=== PATIENT | female | born 1940 | race Caucasian/White ===

== ENCOUNTER → 2017-12-31 13:45 | Outpatient (CLI) | payer MEDICARE, SELFPAY ==
--- NOTE | 2017-12-31 13:45 | LES_PTH ---
PATIENT: CHAD BARRERA LOC: [facility] U#:[id number] AGE/SX: 84/F ROOM: RE12/31/[address]: Dr. Nash Herrera MD : 1940 BED: DIS: SPEC #: [id number] RECD: 12/31/17 17:04 STATUS: PADMINI SEVERO #: [id number] DIANNE: 12/31/17 13:[address]: Nash Herrera DEPT: SURGICAL PATHOLOGY RECD BY: Parker Lee ENTERED: 01/01/18 11:28 SP TYPE: Lesion OTHR DR: Dr. Tobias Herrera III, MD Tissues: Left arm Procedures: Surgery Specimen Level IV HEADER OPERATION: Excision left arm mass PRE-OP DIAGNOSIS: Left arm mass TISSUE SUBMITTED: Left arm tissue MICROSCOPIC DIAGNOSIS Left arm tissue: Mature adipose tissue, consistent with lipoma. See comment. JAKE:barb 01/02/18 COMMENT Skeletal muscle tissue is also noted. MICROSCOPIC DESCRIPTION Slides are reviewed. GROSS DESCRIPTION Received in fixative is one container labeled with the patient's name and designated left arm. The specimen consists of multiple pieces of yellow adipose tissue measuring 3.5 x 3.5 x 1 cm. Sections reveal yellow adipose cut surfaces without area of hemorrhage, necrosis or cystic degeneration. Tower Director sections are submitted in two cassettes. / SJ:rg 01/01/18 TC:1 CPT: 28392
== END ==
PROVIDERS: Family Provider Family Medicine; PCP Family Medicine; Referring Provider Surgery; Visit Provider Surgery
DX: R22.32 Localized swelling, mass and lump, left upper limb (principal)
CPT/HCPCS: 88305